=== PATIENT | male | born 1965 | race Hispanic/Latino ===

== ENCOUNTER 2017-12-20 23:09 | Emergency (ER) | payer MEDICARE, OTHER ==
[2017-12-20 23:21] VITALS: RESP 18; BMI 28.8
[2017-12-20] MEDS ORDERED: DiphenhydrAMINE 50 mg/ml Inj IVP STA (23:38)
--- NOTE | 2017-12-20 23:38 | ED PDOC ---
Arrival/HPI - General Historian: Patient - History of Present Illness Narrative History of Present Illness (Text): 12/20/17 23:36 52 y/o male, pmh including htn and migraine headache, nkda, c/o migraine headache x 2 days with no fall or trauma. Pt. stated that he has chronic dayana nikko, on and off, last episode started about 2 days ago, unilateral, throbbing, non radiating, no change in vision, no numbness or tingling, admits nausea, no night sweat, no weakness, no palpitation, no chest pain, no night sweat, no other medical or psychological complaints. Pt. stated that this feels like his chronic headache with same characteristic and severity. <Dallin Bauer - Last Filed: 12/21/17 01:47> <Lukas Betancourt - Last Filed: 12/21/17 05:40> - General Chief Complaint: Headache Time Seen by Provider: 12/20/17 23:35 Past Medical History - Provider Review Nursing Documentation Reviewed: Yes - Past History Past History: No Previous - Infectious Disease Hx of Infectious Diseases: None - Cardiac Hx Cardiac Disorders: Yes Hx Hypertension: Yes - Pulmonary Hx Respiratory Disorders: No - Neurological Hx Neurological Disorder: No - HEENT Hx HEENT Disorder: No - Renal Hx Renal Disorder: No - Endocrine/Metabolic Hx Endocrine Disorders: No - Hematological/Oncological Hx Blood Disorders: No - Integumentary Hx Dermatological Disorder: No - Musculoskeletal/Rheumatological Hx Musculoskeletal Disorders: No - Gastrointestinal Hx Gastrointestinal Disorders: No - Genitourinary/Gynecological Hx Genitourinary Disorders: No - Psychiatric Hx Psychophysiologic Disorder: Yes Hx Post Traumatic Stress Disorder: Yes ("I used to work in the [employer]") Hx Substance Use: No - Surgical History Hx Tonsillectomy: Yes - Anesthesia Hx Anesthesia: Yes Hx Anesthesia Reactions: No Hx Malignant Hyperthermia: No - Suicidal Assessment Feels Threatened In Home Enviroment: No <Dallin Bauer - Last Filed: 12/21/17 01:47> Family/Social History - Physician Review Nursing Documentation Reviewed: Yes Family/Social History: Unknown Family HX Smoking Status: Never Smoked Hx Alcohol Use: No Hx Substance Use: No <Dallin Bauer - Last Filed: 12/21/17 01:47> Allergies/Home Meds <Dallin Bauer - Last Filed: 12/21/17 01:47> <Lukas Betancourt - Last Filed: 12/21/17 05:40> Allergies/Adverse Reactions: Allergies No Known Allergies Allergy (Verified 09/25/15 00:15) Review of Systems - Review of Systems Constitutional: absent: Fatigue, Fevers Eyes: absent: Vision Changes ENT: absent: Hearing Changes Respiratory: absent: SOB, Cough Cardiovascular: absent: Chest Pain Gastrointestinal: Nausea. absent: Abdominal Pain, Vomiting Musculoskeletal: absent: Arthralgias, Back Pain Skin: absent: Rash, Pruritis Neurological: Headache. absent: Dizziness Hemo/Lymphatic: absent: Adenopathy Psychiatric: absent: Anxiety, Depression <LizetteDallin Ngo - Last Filed: 12/21/17 01:47> Physical Exam Vital Signs Reviewed: Yes Vital Signs Temp Pulse Resp BP Pulse Ox 12/20/17 23:21 98 F 68 18 156/94 H 97 Temperature: Afebrile Blood Pressure: Hypertensive Pulse: Regular Respiratory Rate: Normal Appearance: Positive for: Well-Appearing, Non-Toxic Pain Distress: Moderate Mental Status: Positive for: Alert and Oriented X 3 - Systems Exam Head: Present: Atraumatic, Normocephalic, Other (no temporal artery tenderness) Pupils: Present: PERRL Extroacular Muscles: Present: EOMI Conjunctiva: Present: Normal Ears: Present: NORMAL TM, Normal Canal. No: Erythema Mouth: Present: Moist Mucous Membranes Pharnyx: No: ERYTHEMA, EXUDATE, TONSILS ENLARGED Nose (External): Present: Atraumatic. No: Abrasion, Contusion, Laceration Nose (Internal): Present: Normal Inspection, No Active Bleeding. No: Rhinorrhea, Septal Hematoma, Epistaxis Neck: Present: Normal Range of Motion, Trachea Midline. No: Meningeal Signs, MIDLINE TENDERNESS, Paraspinal Tenderness, Lymphadenopathy Respiratory/Chest: Present: Clear to Auscultation, Good Air Exchange. No: Respiratory Distress, Accessory Muscle Use Cardiovascular: Present: Regular Rate and Rhythm, Normal S1, S2. No: Murmurs Abdomen: No: Tenderness, Distention, Peritoneal Signs, Rebound, Guarding Back: Present: Normal Inspection. No: CVA Tenderness, Midline Tenderness, Paraspinal Tenderness, Pain with Leg Raise, Decubitus Ulcer Upper Extremity: Present: Normal Inspection. No: Cyanosis, Edema, Tenderness, Swelling Lower Extremity: Present: Normal Inspection. No: Edema Neurological: Present: GCS=15, CN II-XII Intact, Speech Normal. No: Motor Func Grossly Intact, Gait Normal, Memory Normal Skin: Present: Warm, Dry, Normal Color. No: Rashes Lymphatic: No: Cervical Adenopathy Psychiatric: Present: Alert, Oriented x 3, Normal Insight, Normal Concentration <Dallin Bauer - Last Filed: 12/21/17 01:47> Vital Signs Temp Pulse Resp BP Pulse Ox 12/21/17 01:41 97.7 F 66 18 130/87 98 12/21/17 01:05 97.7 F 66 18 130/87 98 12/20/17 23:21 98 F 68 18 156/94 H 97 <Lukas Betancourt - Last Filed: 12/21/17 05:40> Medical Decision Making ED Course and Treatment: 12/20/17 23:41 -Labs -IV reglan/benadryl/tylenol -Observe and reasess 12/21/17 00:54 -Labs are non-significant except bun 26 (dehydrated, fluid ordered). -Pt. stated that the headache resolved with medication given in the ER, request to be discharged home. Pt. has no focal neurological deficits. all labs and radiology results discussed with the patient. Pt. stated that he is gonna see his neurologist tomorrow. -Discharge home with education on follow up with your own pmd and neurologist today, return to the Er for any new or worsening signs or symptoms. <Dallin Bauer - Last Filed: 12/21/17 01:47> - Lab Interpretations Lab Results: 12/21/17 00:00 12/21/17 00:00 Lab Results 12/21/17 00:00: WBC 7.7, RBC 5.29, Hgb 15.7, Hct 43.8, MCV 82.8, MCH 29.7, MCHC 35.8, RDW 12.2, Plt Count 230, MPV 9.9, Gran % 49.7 L, Lymph % (Auto) 41.0 H, Bates % (Auto) 7.4 H, Eos % (Auto) 1.6, Baso % (Auto) 0.3, Gran # 3.83, Lymph # (Auto) 3.2, Bates # (Auto) 0.6, Eos # (Auto) 0.1, Baso # (Auto) 0.02 12/21/17 00:00: Sodium 139, Potassium 3.9, Chloride 104, Carbon Dioxide 24, Anion Gap 15, BUN 26 H, Creatinine 1.0, Est GFR ( Amer) > 60, Est GFR (Non-Af Amer) > 60, Random Glucose 96, Calcium 9.2, Magnesium 2.2, Total Bilirubin 0.4, AST 44, ALT 61 H, Alkaline Phosphatase 77, Total Protein 7.9, Albumin 4.6, Globulin 3.3, Albumin/Globulin Ratio 1.4 - Medication Orders Current Medication Orders: Discontinued Medications Acetaminophen (Tylenol 325mg Tab) 650 mg PO STAT STA Stop: 12/20/17 23:39 Last Admin: 12/21/17 00:06 Dose: Not Given Non-Admin Reason: Patient Refused Diphenhydramine HCl (Benadryl) 50 mg IVP STAT STA Stop: 12/20/17 23:39 Last Admin: 12/20/17 23:55 Dose: 50 mg IVP Administration Document 12/20/17 23:55 AMINA (Rec: 12/21/17 00:06 [facility] [id number]) Charges for Administration # of IVP Administrations 1 Metoclopramide HCl (Reglan) 10 mg IVP STAT STA Stop: 12/20/17 23:39 Last Admin: 12/21/17 00:06 Dose: Not Given Non-Admin Reason: Patient Refused <Lukas Betancourt - Last Filed: 12/21/17 05:40> - PA / BATCH OPERATOR / Resident Statement VIOLET has reviewed & agrees with the documentation as recorded. <Dallin Bauer - Last Filed: 12/21/17 01:47> - PA / BATCH OPERATOR / Resident Statement VIOLET has reviewed & agrees with the documentation as recorded. <Lukas Betancourt - Last Filed: 12/21/17 05:40> Disposition/Present on Arrival - Present on Arrival Any Indicators Present on Arrival: No History of DVT/PE: No History of Uncontrolled Diabetes: No Urinary Catheter: No History of Decub. Ulcer: No History Surgical Site Infection Following: None - Disposition Have Diagnosis and Disposition been Completed?: Yes Disposition Time: 00:56 Patient Plan: Discharge <Dallin Bauer - Last Filed: 12/21/17 01:47> - Present on Arrival Any Indicators Present on Arrival: No - Disposition Have Diagnosis and Disposition been Completed?: Yes <Lukas Betancourt - Last Filed: 12/21/17 05:40> - Disposition Diagnosis: Chronic headache, Dehydration Disposition: HOME/ ROUTINE Condition: IMPROVED Additional Instructions: -Discharge home with education on follow up with your own pmd and neurologist today, return to the Er for any new or worsening signs or symptoms. Referrals: Roscoe Prasad MD [Staff Provider] - Follow up with primary [facility] [Outside] - Follow up with primary Forms: [employer] (I[place]ic), WORK NOTE
[2017-12-21 00:11] LABS: BASO # 0.02 K/mm3 (0.0-2.0); BASO % 0.3 % (0.0-3.0); EOS # 0.1 (0.0-0.7); EOS % 1.6 % (1.5-5.0); GRAN # 3.83 (1.4-6.5); GRAN % 49.7 % (50.0-68.0); HEMOGLOBIN 15.7 g/dL (14.0-18.0); LYMPH # 3.2 (1.2-3.4); MEAN CELL VOLUME 82.8 fl (80.0-105.0); MEAN CORPUSCULAR HEMOGLOBIN 29.7 pg (25.0-35.0); MEAN CORPUSCULAR HGB CONC 35.8 g/dl (31.0-37.0); MEAN PLATELET VOLUME 9.9 fl (7.0-11.0); MONO # 0.6 (0.1-0.6); MONO % 7.4 % (1.0-6.0); RBC 5.29 10^6/uL (3.5-6.1); RED CELL DISTRIBUTION WIDTH 12.2 % (11.5-14.5); WHITE BLOOD COUNT 7.7 10^3/ul (4.5-11.0)
[2017-12-21 00:41] LABS: ALB/GLOB RATIO 1.4 (1.1-1.8); ALBUMIN 4.6 g/dL (3.0-4.8); ALT/SGPT 61 U/L (7-56); AST/SGOT 44 U/L (17-59); BLOOD UREA NITROGEN 26 mg/dL (7-21); CALCIUM 9.2 mg/dL (8.4-10.5); GFR NON-AFRICAN AMERICAN > 60
[2017-12-21 01:07] VITALS: BP 130/87; PULSE 66; TEMP 97.7; O2SAT 98
== END 2017-12-21 01:41 | disposition home or self-care (01) ==
LOC: ED 23:09
DX: E86.0 Dehydration (principal); I10 Essential (primary) hypertension
CPT/HCPCS: 80053; 83735; 85025; 96374; 99285; J1200